=== PATIENT | female | born 1980 | race Caucasian/White ===

== ENCOUNTER 2021-07-14 18:54 | Observation (INO) ==
[2021-07-14] MEDS ORDERED: ZOLPIDEM TARTRATE 5 MG TAB PO PRN (19:20)
[2021-07-14] MEDS ORDERED: ALUMINUM/MAGNESIUM/SIMETH (MAALOX MAX) 30 ML UDC PO PRN (19:20)
[2021-07-14] MEDS ORDERED: LOPERAMIDE HCL 2 MG CAP PO PRN (19:20)
[2021-07-14] MEDS ORDERED: ONDANSETRON INJ 2 MG/ML 2 ML VIAL IV PRN (19:20)
[2021-07-14] MEDS ORDERED: MAGNESIUM HYDROXIDE SUSP 30 ML UDC PO PRN (19:20)
[2021-07-14] MEDS ORDERED: LORazepam 0.5 MG TAB PO PRN (19:20)
[2021-07-14] MEDS ORDERED: ACETAMINOPHEN 325 MG TAB PO PRN (19:20)
[2021-07-14] MEDS ORDERED: POLYETHYLENE (MIRALAX) 17 GM PACK PO PRN (19:20)
[2021-07-14] MEDS ORDERED: PATIENT'S HEIGHT AND/OR WEIGHT NEEDED SCH (19:45)
--- NOTE | 2021-07-14 21:16 | History & Physical Report ---
Date of Service July 14, 2021 Assessment & Plan (1) Abdominal pain: Plan: 40-year-old -0-0-2 female with sudden onset abdominal /buttock pain, right lower quadrant pain since July 10 and fevers, nausea. Ultrasound suggesting left adnexal mass with tubal ovarian abscess appearance, Vital signs stable afebrile, Labs are pending from [facility] lab, Plan to admit, monitor, IV antibiotics, repeat labs in the morning, Patient understands plan and agrees with all. (2) TOA (tubo-ovarian abscess): (3) History of tubal ligation: Admission and Anticipated Discharge Date Admission Date: July 14, 2021 History of Present Illness Chief Complaint: Direct admit from office Abdominal pain, fever/ chills, TOA? Primary Care Provider: Edith Del Rio DO 40 year old ( 2 Csections and BTL) with LMP of 06/16, using BTL for contraception presented to office for an evaluation. Patient reports that on 07/10/21 she had symptoms of severe lower abdomial pain, bloating, constipation and not able to pass gas. Patient felt it was due to IBS but symptoms did not improve. Patient then had fevers on 07/11/21. Higgest one was last night and was 101 F. Patient continued to have no relief. Patient then saw PCP on 07/12/[address] scan which was concerning for an ectopic vs hemorrhagic cyst with fluid in pelvis. Patient had a subsequent bhcg which was negative. Patient had a TVUS today which was concerning for a TOA in light of fevers. UTERUS: 7.7 cmx4.7 cmx6.2 cm retroverted. MYOMETRIUM: Homogeneous ENDOMETRIUM: 10.3 mm in thickness, within normal limits. RIGHT OVARY: 2.5 cmx1.9 cmx1.6 cm, 3.9 ml. Unremarkable. LEFT OVARY: 5.7 cmx3.0 cm x 5.6 cm, 49.8 ml. 4.2 x 2.6 x 4.5 cm heterogeneous complex mass. Focally tender during examination. MISCELLANEOUS: Moderate amount of free fluid. IMPRESSION IMPRESSION: 1. 4.2 x 2.6 x 4.5 cm heterogeneous complex mass in the left adnexa, in the setting of a negative test and fever, a tubo-ovarian abscess is the primary consideration. Differential considerations include ruptured hemorrhagic cyst or ectopic . Recommend follow-up ultrasound to exclude underlying neoplasm. Patient was sent for admission for IV AB. 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 Last SI was 1 week ago and was not painful. She has been with same partner for 15 years. Both never had STDs. She had 2 C- sections and last one was followed by tubal ligation for contraception. Denies vaginal bleeding, spotting, vaginal discharge or smell. She denies pain or discomfort during urination. She felt constipated and took MiraLAX and milk of magnesia and she has small amount of diarrhea-like bowel movements but not normal BM's. Abdominal pain has been on the right lower quadrant and now 6 out of 10 intensity. It was 10 out of 10 when it started. Allergies Allergy/AdvReac Type Severity Reaction Status Date / Time No Known Allergies Allergy NONE Unverified 11/11/14 19:59 Home Medications Medication Instructions Recorded Confirmed Type Ibuprofen 400 mg PO Q4H PRN 07/14/21 07/14/21 History Patient History Surgical History History of section Social History Smoking Status: Former smoker Smoking End Date: March 2021; Second Hand Exposure: No; Tobacco Cessation Education Requested by Patient: No Hx Alcohol Use: Yes Alcohol type: beer, wine and hard liquor Hx Substance Use: No Preferred Language: Yoruba Communication Ability: Effective Chief Inspector Required: No Beliefs That Will Affect Care: None Current Living Situation: Family Other Information That Helps Us Care for You: No Feels Safe at Home: Yes Safety Concerns: Feels Safe At This Time Assistive Devices: None Review of Systems as per Subjective / HPI, + fever, + chills, + fatigue, + malaise and + anorexia as per Subjective / HPI, + abdominal pain, + nausea, + vomiting, + change in bowel habits and + constipation Physical Exam Constitutional: WD/WN, vitals as above well developed and well nourished Looks comfortable, does not appear to be in distress. She rates her pain 6 out of 10 right now. Genitourinary: Deferred, completed in office today with right adnexal tenderness and small white discharge, all cultures were collected. Results & Data ([facility]) Vital Signs (Past 12 Hours) Vital Signs Temp Pulse Resp BP Pulse Ox 07/14/21 18:54 36.6 C 89 18 127/84 99 Laboratory Results Pending, from [email or web address]
[2021-07-14] MEDS: AMPICILLIN/SULBACTAM SOD 3,000 MG in 0.9 % SODIUM CHLORIDE 100 ML IV SCH (21:38)
[2021-07-14] MEDS: DOXYCYCLINE HYCLATE 100 MG in DEXTROSE 5% 100 ML IV SCH (22:31)
[2021-07-15] MEDS: AMPICILLIN/SULBACTAM SOD 3,000 MG in 0.9 % SODIUM CHLORIDE 100 ML IV SCH ×2 (03:36→09:45)
[2021-07-15 06:54] LABS: Basophils # (auto) 0.01 K/uL (0-0.2); Basophils % (auto) 0.3 %; Eosinophils # (auto) 0.11 K/uL (0-0.5); Eosinophils % (auto) 2.8 %; Hematocrit (blood only) 30.1 % (37-47); Immature Granulocytes # (auto) 0.01 K/uL (0.00-0.02); Immature Granulocytes % (auto) 0.3 %; Lymphocytes # (auto) 1.07 K/uL (1.2-3.4); Lymphocytes % (auto) 27.2 %; Mean Corpuscular Hemoglobin 30.2 pg (25-34); Mean Corpuscular Hgb Conc 33.2 g/dL (32-36); Mean Corpuscular Volume 90.9 fL (80-100); Mean Platelet Volume 9.2 fL (7.4-10.4); Monocytes # (auto) 0.62 K/uL (0.11-0.59); Monocytes % (auto) 15.8 %; Neutrophils # (auto) 2.11 K/uL (1.4-6.5); Neutrophils % (auto) 53.6 %; Platelet Count 238 K/uL (130-400); RDW Standard Deviation 43.4 fL (36.4-46.3); Red Blood Count 3.31 M/uL (4.2-5.4); White Blood Count 3.93 K/uL (4.8-10.8)
[2021-07-15 07:22] LABS: Albumin Globulin Ratio 1.8 (0.9-2); Albumin Level 3.8 gm/dl (3.4-5.0); BUN Creatinine Ratio 11.5 (10-20); Bilirubin,Total 0.5 mg/dl (0.2-1.0); Calcium 8.5 mg/dl (8.5-10.1); Est GFR (African American) 130.5 ml/min; Est GFR (Non-African American) 112.6 ml/min; Globulin 2.1 gm/dl (2.5-4.0); Total Protein 5.9 gm/dl (6.0-8.3)
[2021-07-15] MEDS ORDERED: SODIUM CHLORIDE 0.9% 1000ML 1,000 ML IV SCH (08:30)
--- NOTE | 2021-07-15 08:35 | Hospitalist Consultation ---
Date of Consultation July 15, 2021 Assessment & Plan (1) Leukopenia: Suspect related to underlying infection and will likely improve with treatment - Follow labs while admitted - repeat outpatient after discharge if not normalized - Check peripheral smear to be complete - Can f/u with PCP on discharge for further outpatient w/u if not improved once infection resolved (2) Anemia: Suspect due to hemoperitoneum. Pt said that she has similar mild transient anemia after the of both of her children. - Follow labs for stability - Check B12 and iron (3) TOA (tubo-ovarian abscess): Management per primary team - improving clinicallly on IV antibiotics. (4) IBS (irritable bowel syndrome): - Restart stool softener and fiber supplement that pt used at home Pt seen and reviewed with collaborating physician, Dr. Betancourt. Plan of care discussed and as outlined above. Thank you for this consultation. We will continue to follow this patient with you. [facility]11 via [employer]. Please don't hesitate to call with questions. Sherrie Zamora PA-C Supervising Physician Co-Signing Physician Notes Attending Addendum: care coordinated with CARMEN Zamora please refer to her notes for full details, I agree with her notes patient seen and examined, records reviewed by myself as well on exam, patient seen resting in bed, with her at bedside comfortable, in good spirits states she feels much better overall abdominal pain is very minimal no nausea/vomiting, fever/chills no chest pain, dyspnea, palpitations, dizziness no weight loss no other symptoms VS noted and reviewed oriented x 3, not in distress, speaks in sentences with no effort nor accessory muscle use normal rate, regular rhythm, no murmurs clear breath sounds bilaterally non distended, soft, nontender no bipedal edema, erythema, warmth no neuro deficits all labs noted and reviewed ASSESSMENT AND PLAN MILD NEUTROPENIA IN THE SETTING OF TUBOOVARIAN ABSCESS WBC 3.9 ANC normal perippheral smear: This peripheral smear for review reveals normochromic/normocytic red blood cells, unremarkable PMNs leukocytes, unremarkable lymphocytes, unremarkable platelets, and unremarkable monocytes. Blasts and schistocytes are not seen. Please note that the PMNs leukocytes lack toxic granulations, cytoplasmic vacuoles, and Dohle bodies. Thus, the signs of sepsis are not present. Review of the patient's CBC reveals leukopenia with a white blood cell count at 3.93 x 10 to the ninth/liter, anemia with a hemoglobin concentration at 10 g/dL and a platelet count of 238 10 to the ninth per liter. This patient does have an absolute lymphopenia at 1.07 times ten to the ninth per liter and a very mild increase in monocytes. Review of the electronic medical record indicates the patient was recently noted to have a left adnexal mass measuring 4.5 cm in greatest dimension. Transvaginal ultrasound suggested a tubo-ovarian abscess. The patient's MCV is unremarkable at 90.9 FL. Thus, the etiology of this patient's anemia is left to further studies such as serum iron studies. Peripheral smear for review: #1. Normochromic/normocytic red blood cells, unremarkable platelets, and unremarkable leukocytes are seen. #2. The presence of leukopenia, anemia, and an absolute lymphopenia or this patient's CBC is noted. #3. Blasts and schistocytes are not seen. #4. Please see above discussion. Michele Charlton MD likely secondary to undelying infection repeat CBC with differential in 1 week c/o PCP MILD ANEMIA likely from hemoperitoneum Folate normal Iron pending asymptomatic repeat CBC with diff on ff up with PCP Marcus Betancourt MD other diagnoses and plan of care as per CARMEN Zamora note's Marcus Betancourt MD History of Present Illness Reason for Consultation: Low white blood cell count Requesting Physician: Dr. Alaniz Attending Physician: Fiorella Alaniz MD History of Present Illness This is a 40 y/o female with a PMH of IBS, chronic sinusitis, and prior tubal ligation who was referred for admission from outpatient [facility] for potential tubo- ovarian abscess. Pt started with lower abdominal discomfort (mostly RLQ), bloating and constipation about five days ago. Initially, pt attributed her symptoms to underlying constipation-predominant IBS. She tried her usual interventions but pain continued/increased and she had vomiting that night. Four days ago, she developed low-grade fevers. She was seen by her PCP three days ago with RLQ pain and tenderness in RLQ on exam so CT was ordered to r/o appendicitis. CT revealed hemoperitoneum with concern for a ruptured ectopic so U/S and beta-HCG ordered. Two nights ago her fever spiked to 101F. Yesterday she tried to work but had ongoing pain, malaise, fatigue, and nausea. U/S yesterday showed potential left TOA, pt seen by outpatient [facility] and referred for admission for IV antibiotics. We have been consulted for leukopenia. Outpatient labs were reviewed. Pt's WBCs on 07/12/21 were 6.99 with ANC 4.67, on 07/14 it was 3.99 with ANC 2.40. H&H in 2019 was 12.9/39.9, on 07/12/21 it was 10.6/32.8, and on 07/14 it was 10.3/32.1. Currently, she reports significant improvement on the IV antibiotics. She is trying to stay active walking around her room. Tolerating diet. Has not moved her bowels so she is concerned about underlying constipation contributing to residual discomfort. She uses a stool softener and fiber supplement at home, which have been ordered by the primary service. Pain and tenderness have improved. No fever since admission. Allergies Allergy/AdvReac Type Severity Reaction Status Date / Time No Known Allergies Allergy NONE Unverified 11/11/14 19:59 Home Medications Medication Instructions Recorded Confirmed Type Ibuprofen 400 mg PO Q4H PRN 07/14/21 07/14/21 History doxycycline hyclate 100 mg capsule 100 mg PO BID 10 Days #20 cap 07/15/21 Rx (Vibramycin) levofloxacin 500 mg tablet 500 mg PO DAILY 10 Days #10 tab 07/15/21 Rx Patient History Medical History (Updated 07/15/21 @ 09:32 by Judy Zamora PA-C) History of hemorrhoids IBS (irritable bowel syndrome) Surgical History H/O arthroscopic knee surgery History of bilateral tubal ligation History of section Family History Grandmother (Paternal) Diabetes Mother Hypertension Father Thyroid disease Social History (Updated 07/15/21 @ 09:29 by Judy Zamora PA-C) Smoking Status: Former smoker Smoking End Date: March 2021; Second Hand Exposure: No; Tobacco Cessation Education Requested by Patient: No Hx Alcohol Use: Yes Alcohol type: beer, wine and hard liquor Hx Substance Use: No Preferred Language: Swedish Communication Ability: Effective Photographic Editor Required: No Beliefs That Will Affect Care: None Current Living Situation: Family Other Information That Helps Us Care for You: No Feels Safe at Home: Yes Safety Concerns: Feels Safe At This Time Assistive Devices: None Review of Systems Review of Systems: All systems reviewed & are unremarkable except as noted in HPI & below Constitutional: + fever, + chills, + fatigue and + malaise Eyes: no diplopia Ear, Nose, Mouth, Throat: no nasal congestion and no sore throat Respiratory: no cough and no dyspnea Cardiovascular: no chest pain, no palpitations and no edema Gastrointestinal: + abdominal pain, + nausea and + constipation Genitourinary: no dysuria and no hematuria Musculoskeletal: no back pain and no neck pain Integumentary: no rash and no yellowing of the skin Neurologic: no dizziness and no headache(s) Physical Exam Constitutional: well developed and well nourished; no acute distress Eyes: + anicteric sclerae Neck: trachea midline Respiratory: no respiratory distress and no labored breathing Auscultation: lungs clear to auscultation bilaterally; no rales, no rhonchi and no wheezes Cardiovascular: Rate/Rhythm: regular rate and regular rhythm Heart Sounds: no murmur Vessels: radial pulses present Gastrointestinal (Abdomen): Inspection/Auscultation: normal bowel sounds; abdomen not distended Percussion/Palpation: + abdomen tender (mild RLQ to deep palpation) and abdomen soft Musculoskeletal: Head/Neck/Chest: normocephalic, head atraumatic and neck supple Skin: no jaundice Neurologic: moves all extremities; no focal motor deficits seen walking in her room with no gait disturbance or loss of balance Psychiatric: A+Ox3, euthymic affect Results & Data Results & Data ([facility]) Vital Signs (Past 12 Hours) Vital Signs Temp Pulse Resp BP Pulse Ox 07/15/21 03:30 36.4 C L 79 20 100/68 99 07/14/21 23:30 36.8 C 76 18 103/67 96 Laboratory Results Laboratory Results - last 24 hr 07/14/21 07/15/21 07/15/21 21:34 06:22 06:22 WBC 3.93 L RBC 3.31 L Hgb 10.0 L Hct 30.1 L MCV 90.9 MCH 30.2 MCHC 33.2 RDW Std Deviation 43.4 RDW Coeff of Willa 13.0 Plt Count 238 MPV 9.2 Immature Gran % (Auto) 0.3 Neut % (Auto) 53.6 Lymph % (Auto) 27.2 [place] % (Auto) 15.8 Eos % (Auto) 2.8 Baso % (Auto) 0.3 Neut # (Auto) 2.11 Lymph # (Auto) 1.07 L [place] # (Auto) 0.62 H Eos # (Auto) 0.11 Baso # (Auto) 0.01 Immature Gran # (Auto) 0.01 Peripher Smr Path Cons Sodium 138 Potassium 4.0 Chloride 107 Carbon Dioxide 28 Anion Gap 3 BUN 7 Creatinine 0.61 Est Cr Clr Drug Dosing 136.0 Est GFR ( Amer) 130.5 Est GFR (Non-Af Amer) 112.6 BUN/Creatinine Ratio 11.5 Glucose 98 Calcium 8.5 Transferrin Ferritin Total Bilirubin 0.5 AST 23 ALT 24 Alkaline Phosphatase 60 Total Protein 5.9 L Albumin 3.8 Globulin 2.1 L Albumin/Globulin Ratio 1.8 Folate SARS-CoV-2, RNA, NAAT NEGATIVE 07/15/21 07/15/21 07/15/21 08:11 08:11 08:11 WBC RBC Hgb Hct MCV MCH MCHC RDW Std Deviation RDW Coeff of Willa Plt Count MPV Immature Gran % (Auto) Neut % (Auto) Lymph % (Auto) [place] % (Auto) Eos % (Auto) Baso % (Auto) Neut # (Auto) Lymph # (Auto) [place] # (Auto) Eos # (Auto) Baso # (Auto) Immature Gran # (Auto) Peripher Smr Path Cons Pending Sodium Potassium Chloride Carbon Dioxide Anion Gap BUN Creatinine Est Cr Clr Drug Dosing Est GFR ( Amer) Est GFR (Non-Af Amer) BUN/Creatinine Ratio Glucose Calcium Transferrin Pending Ferritin Pending Total Bilirubin AST ALT Alkaline Phosphatase Total Protein Albumin Globulin Albumin/Globulin Ratio Folate Pending SARS-CoV-2, RNA, NAAT Diagnostic Findings CT abd/pel 07/12/21 (outpt) - small to moderate volume of hemoperitoneum in the pelvis, statistically likely related to a ruptured hemorrhagic ovarian cyst if there is no history of trauma. Correlate with serum beta-HCG levels, as a ruptured ectopic could appear similar. Normal appendix. Transvaginal Pelvic U/S 07/14/21 - 4.2 x 2.6 x 4.5 cm heterogeneous complex mass in the left adenexa, in the setting of a negative test and fever, a tubo-ovarian abscess is the primary consideration. Differential considerations include ruptured hemorrhagic cyst or ectopic . Recommend f/u ultrasound to exclude underlying neoplasm. Medications Administered Acetaminophen (Acetaminophen 325 Mg Tab) 650 mg PO Q4H PRN PRN Reason: Pain or Fever Stop: 08/13/21 19:19 Last Admin: 07/14/21 21:39 Dose: 650 mg Documented by: [id number] Ampicillin Sodium/Sulbactam Sodium 3,000 mg/ Sodium Chloride 108 mls @ 200 mls/hr IV Q6H ASHLYN; Protocol Stop: 07/24/21 21:29 Last Infusion: 07/15/21 04:09 Dose: 0 mls/hr Documented by: [id number] Admin: 07/15/21 03:36 Dose: 200 mls/hr Documented by: [id number] Infusion: 07/14/21 22:10 Dose: 0 mls/hr Documented by: [id number] Admin: 07/14/21 21:38 Dose: 200 mls/hr Documented by: [id number] Doxycycline Hyclate 100 mg/ (Dextrose) 110 mls @ 50 mls/hr IV Q12H ASHLYN Stop: 07/24/21 21:59 Last Infusion: 07/15/21 00:43 Dose: 0 mls/hr Documented by: [id number] Admin: 07/14/21 22:31 Dose: 50 mls/hr Documented by: [id number]
[2021-07-15] MEDS ORDERED: CALCIUM POLYCARBOPHIL 625MG TAB PO SCH (09:15)
[2021-07-15] MEDS ORDERED: DOCUSATE SODIUM 100 MG CAP PO SCH (09:15)
[2021-07-15 09:36] LABS: Ferritin 70.6 ng/ml (8-388)
--- NOTE | 2021-07-15 10:10 | Gynecologic Progress Note ---
Date of Service July 15, 2021 Assessment & Plan Admission and Anticipated Discharge Date Admission Date: July 14, 2021 Subjective doing much better no pain Physical Exam Constitutional: WD/WN, vitals as above abdomen soft and non-tender no guarding or rebound neg Clarence's will d/c on PO antibiotics follow up in 2 weeks in office Results & Data ([facility]) Vital Signs (Past 12 Hours) Vital Signs Temp Pulse Resp BP Pulse Ox 07/15/21 03:30 36.4 C L 79 20 100/68 99 07/14/21 23:30 36.8 C 76 18 103/67 96 Laboratory Results 07/14/21 07/15/21 07/15/21 21:34 06:22 06:22 WBC 3.93 L RBC 3.31 L Hgb 10.0 L Hct 30.1 L MCV 90.9 MCH 30.2 MCHC 33.2 RDW Std Deviation 43.4 RDW Coeff of Willa 13.0 Plt Count 238 MPV 9.2 Immature Gran % (Auto) 0.3 Neut % (Auto) 53.6 Lymph % (Auto) 27.2 [place] % (Auto) 15.8 Eos % (Auto) 2.8 Baso % (Auto) 0.3 Neut # (Auto) 2.11 Lymph # (Auto) 1.07 L [place] # (Auto) 0.62 H Eos # (Auto) 0.11 Baso # (Auto) 0.01 Immature Gran # (Auto) 0.01 Peripher Smr Path Cons Sodium 138 Potassium 4.0 Chloride 107 Carbon Dioxide 28 Anion Gap 3 BUN 7 Creatinine 0.61 Est Cr Clr Drug Dosing 136.0 Est GFR ( Amer) 130.5 Est GFR (Non-Af Amer) 112.6 BUN/Creatinine Ratio 11.5 Glucose 98 Calcium 8.5 Transferrin Ferritin Total Bilirubin 0.5 AST 23 ALT 24 Alkaline Phosphatase 60 Total Protein 5.9 L Albumin 3.8 Globulin 2.1 L Albumin/Globulin Ratio 1.8 Folate SARS-CoV-2, RNA, NAAT NEGATIVE 07/15/21 07/15/21 07/15/21 08:11 08:11 08:11 WBC RBC Hgb Hct MCV MCH MCHC RDW Std Deviation RDW Coeff of Willa Plt Count MPV Immature Gran % (Auto) Neut % (Auto) Lymph % (Auto) [place] % (Auto) Eos % (Auto) Baso % (Auto) Neut # (Auto) Lymph # (Auto) [place] # (Auto) Eos # (Auto) Baso # (Auto) Immature Gran # (Auto) Peripher Smr Path Cons Cancelled Sodium Potassium Chloride Carbon Dioxide Anion Gap BUN Creatinine Est Cr Clr Drug Dosing Est GFR ( Amer) Est GFR (Non-Af Amer) BUN/Creatinine Ratio Glucose Calcium Transferrin 285 Ferritin 70.6 Total Bilirubin AST ALT Alkaline Phosphatase Total Protein Albumin Globulin Albumin/Globulin Ratio Folate 17.60 SARS-CoV-2, RNA, NAAT
[2021-07-15] MEDS: DOXYCYCLINE HYCLATE 100 MG in DEXTROSE 5% 100 ML IV SCH (10:21)
[2021-07-15] MEDS ORDERED: SIMETHICONE 80 MG CHEW PO PRN (14:06)
== END 2021-07-15 15:50 | disposition home or self-care (01) ==
LOC: OPB 18:54 → 4S2 18:56 → INTOOBSV 19:20 → 4S2 19:20